=== PATIENT | female | born 1980 | race Caucasian/White ===

== ENCOUNTER 2018-08-16 14:58 | Emergency (ER) | payer BC ==
[~2018-08-16] VITALS: Ht 167.6 cm; Wt 52.2 kg
[~2018-08-16 14:58] MED LIST: ALLERTEC PO; ESOM40CA PO; HYDR-4354 PO; METO50TA7 PO; SUMA100T PO
[2018-08-16] MEDS ORDERED: ONDANSETRON 4 MG/2 ML VIAL IV ONE ×2 (15:00→15:30)
[2018-08-16] MEDS ORDERED: IV NORMAL SALINE 1000 ML BAG IV ONE ×3 (15:00→16:30)
[2018-08-16] MEDS ORDERED: HYDROMORPHONE 1 MG/1 ML DISP.SYRIN IV ONE ×2 (15:00→15:30)
[2018-08-16] MEDS ORDERED: ONDANSETRON 4 MG/2 ML VIAL ONE ×2 (15:29→16:44)
[2018-08-16] MEDS ORDERED: HYDROMORPHONE 2 MG/1 ML DISP.SYRIN ONE (15:29)
[2018-08-16 15:39] LABS: BASOPHILS # (AUTO) 0.1 K/uL (0.0-8.0); BASOPHILS % (AUTO) 0.6 % (0.0-2.0); EOSINOPHILS # (AUTO) 0.1 K/uL (0.0-0.7); EOSINOPHILS % (AUTO) 1.5 % (0.0-7.0); HEMATOCRIT 40.9 % (31.2-41.9); HEMOGLOBIN 13.9 g/dL (10.9-14.3); LYMPHOCYTES # (AUTO) 1.6 K/uL (20.0-40.0); LYMPHOCYTES % (AUTO) 19.4 % (20.5-51.5); MEAN CORPUSCULAR HEMOGLOBIN 32.4 uug (24.7-32.8); MEAN CORPUSCULAR HGB CONC 34 g/dL (32.3-35.6); MEAN CORPUSCULAR VOLUME 95.1 fL (75.5-95.3); MONOCYTES # (AUTO) 0.7 K/uL (2.0-10.0); MONOCYTES % (AUTO) 8.9 % (0.0-11.0); NEUTROPHILS # (AUTO) 5.9 K/uL (1.8-8.9); NEUTROPHILS % (AUTO) 69.6 % (38.5-71.5); PLATELET COUNT (AUTO) 199 K/uL (179-408); WHITE BLOOD COUNT (AUTO) 8.4 K/uL (3.8-11.8)
[2018-08-16 15:49] LABS: CREATININE 1.1 mg/dL (0.6-1.3); POTASSIUM 3.6 mmol/L (3.5-5.1)
[2018-08-16 15:55] LABS: BILIRUBIN,DIRECT 0.1 mg/dL (0.0-0.2); BILIRUBIN,TOTAL 0.4 mg/dL (0.2-1.0); TOTAL PROTEIN, SERUM 7.2 g/dL (6.4-8.2)
[2018-08-16] MEDS ORDERED: ONDANSETRON IV *ER 4 MG/2 ML VIAL IV ONE (16:45)
--- NOTE | 2018-08-16 16:45 | NUR ---
DR MARX TALKED TO THE PT AND TO HER .
[2018-08-16] MEDS ORDERED: METOCLOPRAMIDE HCL 10 MG/2 ML VIAL IV ONE (17:30)
[2018-08-16] MEDS ORDERED: METOCLOPRAMIDE HCL 10 MG/2 ML VIAL ONE (17:30)
--- NOTE | 2018-08-16 18:19 | NUR ---
PT WAS EVALUATED BY DR MARX. PT WAS D/C'd TO HOME. D/C INSTRUCTIONS GIVEN TO THE PT.
[2018-08-16 18:21] VITALS: BP 114/65
[2018-08-16] MEDS ORDERED: LORAZEPAM 2 MG/1 ML VIAL ONE (18:40)
[2018-08-16] MEDS ORDERED: LORAZEPAM 2 MG/1 ML VIAL IM ONE (18:45)
[2018-08-16] MEDS ORDERED: PROMETHAZINE HCL 25 MG SUPP.RECT RC ONE (19:13)
[2018-08-16] MEDS ORDERED: PROMETHAZINE HCL 12.5 MG SUPP.RECT RC ONE (19:15)
--- NOTE | 2018-08-16 19:25 | NUR ---
Patient discharged to home in stable conditon. Written and verbal after care instructions given. Patient verbalizes understanding of instructions. Pt. d/c w/ prescription per MD order, all belongings w/ pt., left in private vehicle,
[2018-08-18] MEDS ORDERED: TOPI100T PO (03:06)
[2018-08-18] MEDS ORDERED: tamoxifen PO (03:06)
== END 2018-08-16 19:27 | disposition home or self-care (01) ==
LOC: ER 14:58
DX: K52.9 Noninfective gastroenteritis and colitis, unspecified (principal); Z88.5 Allergy status to narcotic agent; Z88.8 Allergy status to other drugs, medicaments and biological substances; Z91.040 Latex allergy status; Z91.048 Other nonmedicinal substance allergy status; Z79.891 Long term (current) use of opiate analgesic; Z79.899 Other long term (current) drug therapy
CPT/HCPCS: 36415; 71045; 72040; 74176; 80048; 80076; 83690; 84484; 85025; 85730; 96361; 96372; 96374; 96375; 96376; 99284; J1170; J2060; J2405 ×2; J2765; 70030-TC; A4663; J7030